=== PATIENT | male | born 1970 | race African-American/Black ===

== ENCOUNTER 2022-10-06 09:26 | Emergency (ER) | payer OTHER, SELFPAY ==
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
[2022-10-06 09:33] VITALS: BP 164/110; PULSE 98; RESP 18; TEMP 36.6; O2SAT 97; BMI 30.8
[2022-10-06 10:25] LABS: Appearance Urine Cloudy; Color Urine Dark Yellow; Glucose Urine UA Negative (Negative); Leukocyte Esterase Urine Negative (Negative); Nitrite Urine Negative (Negative); PH 5.5 (5.0-9.0); Specific Gravity - Urine 1.025 (1.005-1.025); UMIC TRIGGER UACC YES; Urine Blood Negative (Negative); Urine Ketones Trace mg/dL (Negative); Urine Protein 30 (1+) mg/dL (Neg-Trace)
--- NOTE | 2022-10-06 10:26 | PC.NURSE ---
Off at imaging
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
[2022-10-06 10:38] LABS: Bacteria Urine None Seen (None Seen); RBC Urine 0-2 /HPF (0-2); Squamous Epithelial Cell Urine 0-2 /HPF (0-2); WBC Urine 0-5 /HPF (0-5)
[2022-10-06 12:20] LABS: CT PCR NOT DETECTED (Not Detect.); NG PCR NOT DETECTED (Not Detect.)
== END 2022-10-06 11:54 | disposition home or self-care (01) ==
PROVIDERS: Physician Assistant Medical; Emergency Provider Student in an Organized Health Care Education/Training Program; PCP Internal Medicine
DX: S06.0X0A Concussion without loss of consciousness, initial encounter (principal); S29.011A Strain of muscle and tendon of front wall of thorax, initial encounter; S39.011A Strain of muscle, fascia and tendon of abdomen, initial encounter; S86.912A Strain of unspecified muscle(s) and tendon(s) at lower leg level, left leg, initial encounter; S56.812A Strain of other muscles, fascia and tendons at forearm level, left arm, initial encounter; V43.51XA Car driver injured in collision with sport utility vehicle in traffic accident, initial encounter; N50.811 Right testicular pain; Y93.89 Activity, other specified; Y92.415 Exit ramp or entrance ramp of street or highway as the place of occurrence of the external cause; Y99.9 Unspecified external cause status
CPT/HCPCS: 0353U; 70450; 71046; 72100; 72125; 76870; 81001; 93975; 99282; 99284